=== PATIENT | male | born 1995 | race Asian ===

== ENCOUNTER 2020-07-20 08:58 | Outpatient (CLI) | payer BC | END 2020-07-20 08:59 | disposition home or self-care (01) | LOC: CSHCT 08:58 | PROVIDERS: ATTEND Urology | DX: R31.29 Other microscopic hematuria (principal); R39.198 Other difficulties with micturition; N28.89 Other specified disorders of kidney and ureter; Z87.442 Personal history of urinary calculi; K44.9 Diaphragmatic hernia without obstruction or gangrene | CPT/HCPCS: 74178 ==